=== PATIENT | female | born 1975 | race Caucasian/White ===

== ENCOUNTER 2020-08-09 12:00 | Outpatient (RCR) | payer OTHER, SELFPAY ==
--- NOTE | 2020-05-06 15:52 | HP.PTEVAL_ITS ---
Patient's Visit Information ESHA HUSTON is a 45 year old F referred to Physical Therapy by KIERRA CUMMINGS with a diagnosis of LEFT SHOULDER PAIN,FROZEN. Date of Evaluation: 05/06/20 Physical Therapist: Nathan Armstrong PT, Cert MDT, OCS - Visit Plan Frequency: 2x /Week Duration: 4 Weeks Plan: CHRONIC PLANTERFASCITIS WITH HEEL SPURS - Subjective This 45 y/o female presents to physical therapy with with left plantarfascitis. Patient has had plantarfascitis about 15 years with several injections which didn't help. Conservative treatment injections,orthotics and night splint slplit. Patient thought needed surgery but wants to try PT. Patient fracture ankle 17 years ago.Patient has h/o heel spurs. Patient location of pain on feel with dorsal edema. Patient aggravating walking,standing,inactivity ,AM. Patient has some parathesia toes. Patient has x-rays - spurs . Patient condition affects function ,ADL'S and housework tasks. 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 PALPATION: GATROC LATERAL HEAD GREATER. NEURO: occasional tingling foot. GAIT: antalgic. PALAPTION: tender lateral G-S ,calcaneal. AROM: dorsiflexion 2 degrees,planterflexion 65 degrres ,inversion 35 degrees,eversion 5 degrees. PROPRIOCEPTION: impaired. - Goals Goal 1:: Patient to be I HEP. Goal Time Frame: 4-6 Weeks Goal 2:: Patient to ambualte with normal cadance. Goal Time Frame: 4-6 Weeks Goal 3:: Patient decrease pain by 50% or > to improve gait and function. Goal Time Frame: 4-6 Weeks Goal 4:: Patient improve AROM ankle eliseo planterfascia WFL. 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 Pateint has had pain for a bout 15 years and has had conservative treatment. Rehabilitation Potential: Good - Anticipated Interventions Patient/Client Instruction: Educate patient on: Condition, Plan of Care For the Purpose of:: To decrease pain, To increase ROM, To improve muscle performance and motor function, To improve ability to perform ADL's, To increase tolerance to activity/condition/position, To improve ability of physical actions for home/community/work/leisure, To improve health of tissue, To decrease soft tissue restriction, To increase flexibility/ROM, To improve ability to perform tasks related to life management Therapeutic Exercise to Include: Strength training, Postural training, Flexibilty training, Dynamic Lumbar Stabilization For the Purpose of:: To decrease pain, To increase ROM, To improve muscle performance and motor function, To improve ability to perform ADL's, To improve performance and independence with ADL's, To improve ability of physical actions for home/community/work/leisure, To improve health of tissue, To decrease soft tissue restriction, To increase flexibility/ROM, To improve ability to perform tasks related to life management Manual Therapy Techniques to Include: Mobilization, Soft tissue mobilization Comment: G-S ,PLANTAR FASCIA,HAWK,ROLLING For the Purpose of:: To decrease pain, To increase ROM, To improve muscle perfor tejas and motor function, To increase tolerance to activity/condition/position, To improve ability of physical actions for home/community/work/leisure, To improve health of tissue, To decrease soft tissue restriction, To increase flexibility/ROM, To prevent re-injury TENS: Yes IF ES: Yes Cryotherapy (ice pack, ice massage): Yes Thermo therapy (hot pack): Yes Ultrasound (thermal/non thermal): Yes For the Purpose of:: To decrease pain, To increase ROM, To improve health of tissue, To decrease soft tissue restriction Thank you for the opportunity to evaluate your patient. For Medicare and Medicare HMO plans, please review the plan of care and approve it. It will need to be FAXED BACK to us at [phone] for Medicare purposes. For Medicare only, by signing this I certify the plan of care. Please let me know if there are questions or concerns regarding this plan of care. Physician Signature: Date:
--- NOTE | 2020-05-10 07:34 | HP.PTEVAL_ITS ---
Patient's Visit Information ESHA HUSTON is a 45 year old F referred to Physical Therapy by KIERRA CUMMINGS with a diagnosis of PLANTERFASCITIS,EQUINO LEFT. Date of Evaluation: 05/06/20 Physical Therapist: Nathan Armstrong, PT, Cert MDT, OCS - Visit Plan Frequency: 2x /Week Duration: 4 Weeks Plan: CHRONIC PLANTERFASCITIS WITH HEEL SPURS. PT INTERVENTIONS MANUAL THERAPY CALF/PLANTERFASCIA HAWK/STM/STICK,US ,CP STRETCHING PLANTERFASCIA/G-S, - Subjective This 45 y/o female presents to physical therapy with with left plantarfascitis. Patient has had plantarfascitis about 15 years with several injections which didn't help. Conservative treatment injections,orthotics and night splint slplit. Patient thought needed surgery but wants to try PT. Patient fracture ankle 17 years ago.Patient has h/o heel spurs. Patient location of pain on feel with dorsal edema. Patient aggravating walking,standing,inactivity ,AM. Patient has some parathesia toes. Patient has x-rays - spurs . Patient condition affects function ,ADL'S and housework tasks. 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 PALPATION: GATROC LATERAL HEAD GREATER. NEURO: occasional tingling foot. GAIT: antalgic. PALAPTION: tender lateral G-S ,calcaneal. AROM: dorsiflexion 2 degrees,planterflexion 65 degrres ,inversion 35 degrees,eversion 5 degrees. PROPRIOCEPTION: impaired. - Goals Goal 1:: Patient to be I HEP. Goal Time Frame: 4-6 Weeks Goal 2:: Patient to ambualte with normal cadance. Goal Time Frame: 4-6 Weeks Goal 3:: Patient decrease pain by 50% or > to improve gait and function. Goal Time Frame: 4-6 Weeks Goal 4:: Patient improve AROM ankle eliseo planterfascia WFL. 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 Pateint has had pain for a bout 15 years and has had conservative treatment. Rehabilitation Potential: Good - Anticipated Interventions Patient/Client Instruction: Educate patient on: Condition, Plan of Care For the Purpose of:: To decrease pain, To increase ROM, To improve muscle performance and motor function, To improve ability to perform ADL's, To increase tolerance to activity/condition/position, To improve ability of physical actions for home/community/work/leisure, To improve health of tissue, To decrease soft tissue restriction, To increase flexibility/ROM, To improve ability to perform tasks related to life management Therapeutic Exercise to Include: Strength training, Postural training, Flexibilty training, Dynamic Lumbar Stabilization For the Purpose of:: To decrease pain, To increase ROM, To improve muscle performance and motor function, To improve ability to perform ADL's, To improve performance and independence with ADL's, To improve ability of physical actions for home/community/work/leisure, To improve health of tissue, To decrease soft tissue restriction, To increase flexibility/ROM, To improve ability to perform tasks related to life management Manual Therapy Techniques to Include: Mobilization, Soft tissue mobilization Comment: G-S ,PLANTAR FASCIA,HAWK,ROLLING For the Purpose of:: To decrease pain, To increase ROM, To improve muscle performance and motor function, To increase tolerance to activity/condition/position, To improve ability of physical actions for home/community/work/leisure, To improve health of tissue, To decrease soft tissue restriction, To increase flexibility/ROM, To prevent re-injury TENS: Yes IF ES: Yes Cryotherapy (ice pack, ice massage): Yes Thermo therapy (hot pack): Yes Ultrasound (thermal/non thermal): Yes For the Purpose of:: To decrease pain, To increase ROM, To improve health of tissue, To decrease soft tissue restriction Thank you for the opportunity to evaluate your patient. For Medicare and Medicare HMO plans, please review the plan of care and approve it. It will need to be FAXED BACK to us at [phone] for Medicare purposes. For Medicare only, by signing this I certify the plan of care. Please let me know if there are questions or concerns regarding this plan of care. Physician Signature: Date:
--- NOTE | 2020-10-14 10:47 | HP.PTDCNRP_ITS ---
ESHA HUSTON was seen in my office for initial evaluation on 05/06/20. The following Plan of Care was established for this patient: Initial Frequency: 2x /Week Initial Duration: 4 Weeks Patient/Client Instruction: Educate patient on: Condition, Plan of Care For the Purpose of:: To decrease pain, To increase ROM, To improve muscle performance and motor function, To improve ability to perform ADL's, To increase tolerance to activity/condition/position, To improve ability of physical actions for home/community/work/leisure, To improve health of tissue, To decrease soft tissue restriction, To increase flexibility/ROM, To improve ability to perform tasks related to life management Therapeutic Exercise to Include: Strength training, Postural training, Flexibilty training, Dynamic Lumbar Stabilization For the Purpose of:: To decrease pain, To increase ROM, To improve muscle performance and motor function, To improve ability to perform ADL's, To improve performance and independence with ADL's, To improve ability of physical actions for home/community/work/leisure, To improve health of tissue, To decrease soft tissue restriction, To increase flexibility/ROM, To improve ability to perform tasks related to life management Manual Therapy Techniques to Include: Mobilization, Soft tissue mobilization Comment: G-S ,PLANTAR FASCIA,HAWK,ROLLING For the Purpose of:: To decrease pain, To increase ROM, To improve muscle performance and motor function, To increase tolerance to activity/condition/position, To improve ability of physical actions for home /community/work/leisure, To improve health of tissue, To decrease soft tissue restriction, To increase flexibility/ROM, To prevent re-injury TENS: Yes IF ES: Yes Cryotherapy (ice pack, ice massage): Yes Thermo therapy (hot pack): Yes Ultrasound (thermal/non thermal): Yes For the Purpose of:: To decrease pain, To increase ROM, To improve health of tissue, To decrease soft tissue restriction This patient was last seen in our office . Pertinent comments regarding their Physical therapy will appear below: Patient seen for planterfacsitis with manual therapy STM PF ,US and stretching thus is d/c At this point I will be discontinuing this patient from physical therapy. I would be happy to see this patient again in the future if found appropriate by the physician. Thank you! Nathan Armstrong, PT, Cert MDT, OCS
== END 2020-08-09 19:00 | disposition home or self-care (01) ==
LOC: PT 12:00
PROVIDERS: PCP Family Medicine
DX: M72.2 Plantar fascial fibromatosis (principal); M24.572 Contracture, left ankle
CPT/HCPCS: 97035; 97110; 97140; 97162